=== PATIENT | female | born 1960 | race Asian ===

== ENCOUNTER → 2020-01-22 15:40 | Outpatient (CLI) | payer OTHER, SELFPAY ==
--- NOTE | 2020-01-22 | DI.MG.S_ITS ---
BILATERAL DIGITAL SCREENING MAMMOGRAM 3D/2D WITH CAD: 01/22/2020 CLINICAL: Routine screening. Family history of breast cancer. Comparison is made to exams dated: 01/17/2019 mammogram, 12/29/2017 mammogram, and 10/28/2016 mammogram - [facility]. The tissue of both breasts is predominantly fatty. Current study was also evaluated with a Computer Aided Detection (CAD) system. No significant masses, calcifications, or other findings are seen in either breast. There has been no significant interval change. IMPRESSION: NEGATIVE There is no mammographic evidence of malignancy. A 1 year screening mammogram is recommended. This exam was interpreted at Station ID: [id number]. NOTE: For mammograms, a report in lay terms will be sent to the patient. Approximately 15% of breast malignancies will not be visualized mammographically. In the management of a palpable breast mass, a negative mammogram must not discourage biopsy of a clinically suspicious lesion. Electronically Signed By: Jesse Banks M.D., jr/samantha:01/22/2020 16:01:24 letter sent: Normal Exam ACR BI-RADS Category 1: Negative 3341F
== END ==
PROVIDERS: Referring Provider Family Medicine; Visit Provider Family Medicine
DX: Z12.31 Encounter for screening mammogram for malignant neoplasm of breast (principal); Z80.3 Family history of malignant neoplasm of breast
CPT/HCPCS: 77063; 77067

== ENCOUNTER → 2020-09-03 15:07 | Outpatient (CLI) | payer OTHER, SELFPAY ==
[2020-09-03 16:38] LABS: COVID19 -Nasal RAPID Negative (Negative)
== END ==
PROVIDERS: PCP Family Medicine; Visit Provider Surgery
DX: Z20.822 Contact with and (suspected) exposure to COVID-19 (principal)
CPT/HCPCS: 87635; C9803

== ENCOUNTER 2020-09-04 07:22 | Day surgery (SDC) | payer OTHER, SELFPAY ==
[2020-09-04] VITALS (9 sets, daily range): BP systolic 100–126; BP diastolic 67–84; PULSE 82–95; RESP 12–16; TEMP 36.1–36.6; O2SAT 95–98; BMI 24.5
[2020-09-04] MEDS: SODIUM CHLORIDE 0.9% 1,000 ML 200 ML IV (08:11)
--- NOTE | 2020-09-04 08:20 | PM.HP.1 ---
History of Present Illness History of Present Illness Date Patient Seen: 09/04/20 Time Patient Seen: 08:20 Chief complaint: SCREENING COLONOSCOPY Narrative: This is a 59-year-old woman who is here for 10 year screening colonoscopy. Her last colonoscopy was done in 2009, and was reportedly normal. She denies any new symptoms specifically denies melena, hematochezia, unexplained abdominal pain, unexplained weight loss. She says she is otherwise quite healthy other than a heel spur which is bothering her quite a bit. ROS: Thirteen system review is otherwise negative other than as mentioned below and in HPI. PE: GENERAL: Well groomed and cooperative. Appears stated age. Answers questions promptly and appropriately. Vital signs noted. HENT: Normocephalic, atraumatic. Hearing intact. EYES: Conjunctiva pink, sclera white, no periorbital swelling. CARDIOVASCULAR: Regular rate. No pedal edema. RESPIRATORY: Non-tachypneic, breathing comfortably on room air. GASTROINTESTINAL: Abdomen soft and non-distended GENITALURINARY: No flank tenderness. MUSCULOSKELETAL: Equal tone and mass bilaterally. SKIN: Warm, dry, soft, appropriate color for ethnicity. No other lesions, rashes, or wounds. NEURO: Alert and Oriented X 3. No gross sensory deficits, or cognitive issues. PSYCH: Appropriate affect and mood. Patient History Medical History Hypercholesteremia Hypertension Left thumb amputee Surgical History S/P breast biopsy, left Family & Social History Tobacco & Substance use: Smoking Status Never smoker alcohol intake never Substance Use Type does not use Meds Home Medications and Allergies Home Medications Medication Instructions Recorded Confirmed Type chlorpheniramine maleate 4 mg PO TID PRN 09/04/20 09/04/20 History [Chlortab-4] lisinopril 40 mg PO DAILY 09/04/20 09/04/20 History simvastatin 40 mg PO DAILY 09/04/20 09/04/20 History Allergies Allergy/AdvReac Type Severity Reaction Status Date / Time Sulfa (Sulfonamide Allergy Severe Rash Verified 09/04/20 07:51 Antibiotics) Exam Vital Signs (past 8 hours): - 09/04/20 07:55 Temperature 97.0 F L Pulse Rate 95 H Respiratory Rate 16 Blood Pressure 119/82 Pulse Oximetry 98 Oxygen Delivery Method Room Air Oxygen Flow Rate 0 Assessment & Plan Assessment and plan (1) At average risk for colon cancer: Status: Acute Assessment & Plan narrative: Risks and benefits of screening colonoscopy and possible polypectomy were discussed with the patient including risk of bleeding, perforation, need for additional procedures, risks of anesthesia. The patient desires to proceed with the colonoscopy procedure. COVID-19 COVID-19 status: Negative Result date/Date tested (Pos, Neg/Pending): 09/03/20 Time Spent With Patient Time with patient: 15-24 minutes Quality VTE Deep Vein Thrombosis/Pulmonary Embolism Present on Admission: No
--- NOTE | 2020-09-04 08:21 | PM.OP.ENDO ---
Operative Date/Time/Diagnoses Date of procedure: 09/04/20 Time of procedure: 08:21 Pre-op diagnosis: Average risk for colon cancer, due for screening colonoscopy Post-op diagnosis: other (Mild diverticulosis, grade 2-3 internal hemorrhoids) Procedure & Clinicians Study performed: Colonoscopy Procedural sedation performed by the endoscopist Same procedure as scheduled: Yes Indications: Average risk for colon cancer, 10 years since last colonoscopy Surgeon: Anabel Walls Procedure Notes SCOAP/Timeout: Performed Procedure in detail: The patient was brought to the room and placed in left lateral decubitus position with all bony prominences padded. A time-out was performed and then the patient was given procedural sedation with a total of [4] mg of Versed and [150] mcg of fentanyl. Vitals were monitored throughout the procedure and remained stable. Once adequately sedated, the procedure was begun. A rectal exam was performed revealing [no abnormalities]. The colonoscope was then introduced to the rectum and advanced to the cecum in the usual fashion. []The cecum was identified by the appendiceal orifice, the mucosal tri-fold, and the ileocecal valve. The scope was then retracted while rotating side to side and examining each mucosal fold. [] A few scattered diverticula were seen throughout the colon, with no evidence of active diverticulitis. At the conclusion of the procedure retroflexion was performed and [small grade 2-3 internal hemorrhoids without stigmata of bleeding were seen]. The scope was then withdrawn from the rectum the procedure was concluded. The patient tolerated the procedure well and was transferred to the PACU in stable condition. Scope withdrawal time: 6 Sedation minutes: 17 Findings: diverticulosis and internal hemorrhoids Specimen(s): none sent Complications: none Impression: Mild diverticulosis, grade 2-3 internal hemorrhoids, no polyps Post-procedure Recommendations: Colonscopy in 10 years Follow up: as needed Disposition: PACU
[2020-09-04] MEDS: MIDAZOLAM 5 MG/5 ML VIAL IV (08:27)
[2020-09-04] MEDS: fentaNYL 250 MCG/5 ML INJ IV (08:27)
--- NOTE | 2020-09-04 09:10 | SUR.PHASEI ---
Pt received to PACU after sedation during colonoscopy. Report received from DOMINGA Copeland.
--- NOTE | 2020-09-04 09:13 | SUR.PHASEII ---
Pt from phase I via stretcher with Rn. Alert, oriented. C/O slight dizziness, juice given.
--- NOTE | 2020-09-04 09:28 | SUR.PHASEII ---
Pt with emesis 100ml of cranberry juice colored clear fluid. Cool rag to face. IVF infusing.
--- NOTE | 2020-09-04 09:33 | SUR.PREOP ---
Dr Walls here. nOvited of Pt nausea, emesis and slight dizziness. See order for zofran IV.
[2020-09-04] MEDS: ONDANSETRON 4 MG/2 ML INJ IV (09:41)
--- NOTE | 2020-09-04 09:44 | SUR.PHASEII ---
Pt with second emesis. IV zofran given. Report to Bibi ORR.
--- NOTE | 2020-09-04 10:24 | SUR.PHASEII ---
pt experienced ponv. written order for zofran received and administered by DOMINGA Murphy. Pt is now stable for discharge
== END 2020-09-04 10:38 | disposition home or self-care (01) ==
PROVIDERS: PCP Family Medicine; Referring Provider Family Medicine; Visit Provider Surgery
PROC: 0DJD8ZZ Inspection of Lower Intestinal Tract, Via Natural or Artificial Opening Endoscopic (ICD-10-PCS; CPT 45378; principal; 2020-09-04 08:30)
DX: Z12.11 Encounter for screening for malignant neoplasm of colon (principal); E78.00 Pure hypercholesterolemia, unspecified; I10 Essential (primary) hypertension; K57.30 Diverticulosis of large intestine without perforation or abscess without bleeding; K64.1 Second degree hemorrhoids
CPT/HCPCS: 45378; 99152; J2250; J2405; J3010

== ENCOUNTER → 2021-02-07 09:42 | Outpatient (CLI) | payer OTHER, SELFPAY ==
--- NOTE | 2021-02-07 09:42 | DI.MG.S_ITS ---
BILATERAL DIGITAL SCREENING MAMMOGRAM 3D/2D WITH CAD: 02/07/2021 CLINICAL: Routine screening. Family history of breast cancer. Comparison is made to exams dated: 01/17/2019 mammogram, 12/29/2017 mammogram, and 10/28/2016 mammogram - [facility]. There are scattered fibroglandular elements in both breasts. Current study was also evaluated with a Computer Aided Detection (CAD) system. No significant masses, calcifications, or other findings are seen in either breast. There has been no significant interval change. IMPRESSION: NEGATIVE There is no mammographic evidence of malignancy. A 1 year screening mammogram is recommended. This exam was interpreted at Station ID: [id number]. NOTE: For mammograms, a report in lay terms will be sent to the patient. Approximately 15% of breast malignancies will not be visualized mammographically. In the management of a palpable breast mass, a negative mammogram must not discourage biopsy of a clinically suspicious lesion. Electronically Signed By: Reji thompson/samantha:02/09/2021 08:18:12 letter sent: Normal Exam ACR BI-RADS Category 1: Negative 3341F
== END ==
PROVIDERS: PCP Family Medicine; Referring Provider Family Medicine; Visit Provider Family Medicine
DX: Z12.31 Encounter for screening mammogram for malignant neoplasm of breast (principal); Z80.3 Family history of malignant neoplasm of breast
CPT/HCPCS: 77063; 77067

== ENCOUNTER → 2024-03-26 16:46 | Outpatient (CLI) | payer MEDICARE, OTHER, SELFPAY ==
--- NOTE | 2024-03-26 16:47 | DI.MG.S_ITS ---
BILATERAL DIGITAL SCREENING MAMMOGRAM 3D/2D WITH CAD: 03/26/2024 CLINICAL: Routine screening. Family history of breast cancer. Comparison is made to exams dated: 02/07/2021 mammogram, 01/22/2020 mammogram - [facility], 01/17/2019 mammogram, 12/29/2017 mammogram, and 10/28/2016 mammogram - [facility]. There are scattered areas of fibroglandular density (category b / 25%-50% glandular tissue). Current study was also evaluated with a Computer Aided Detection (CAD) system. There are benign post operative findings in the left breast. No significant masses, calcifications, or other findings are seen in either breast. There has been no significant interval change. IMPRESSION: BENIGN There is no mammographic evidence of malignancy. A 1 year screening mammogram is recommended. Based on the Tyrer Cuzick model (a risk assessment model) the patient's lifetime risk is 4.8% and her 10 year risk is 2.3%. According to the ACR, ACS, and NCCN guidelines, an annual breast MRI exam along with mammogram is recommended if the patient's lifetime risk is 20% or greater. This exam was interpreted at Station ID: [id number]. NOTE: For mammograms, a report in lay terms will be sent to the patient. Approximately 15% of breast malignancies will not be visualized mammographically. In the management of a palpable breast mass, a negative mammogram must not discourage biopsy of a clinically suspicious lesion. Electronically Signed By: Stephani Glover M.D., Ph.D. mario/samantha:03/28/2024 17:05:29 letter sent: Normal Exam ACR BI-RADS Category 2: Benign
== END ==
PROVIDERS: Referring Provider Family Medicine; Visit Provider Family Medicine
DX: Z12.31 Encounter for screening mammogram for malignant neoplasm of breast (principal); Z80.3 Family history of malignant neoplasm of breast
CPT/HCPCS: 77063; 77067